=== PATIENT | female | born 1995 | race Two or more races ===

== ENCOUNTER 2022-03-29 08:54 | Emergency (ER) | payer BC, SELFPAY ==
[2022-03-29 09:02] VITALS: BP 107/64; PULSE 78; RESP 16; TEMP 36.1; O2SAT 100; BMI 22.7
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
[2022-03-29] MEDS: Ondansetron 4 MG/2 ML Vial IV (09:24)
[2022-03-29] MEDS: fentaNYL 100 MCG/2 ML Ampul 25 MCG IV ×2 (09:26→10:12)
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
[2022-03-29 09:34] LABS: Absolute Lymphocyte Count 1.88 X10^3/uL (0.83-4.51); Absolute Neutrophil Count 2.8 X10^3/uL (2.0-7.7); Basophil# 0.03 X10^3/uL; Basophil% 0.6 % (0-1); Eosinophils% 1.9 % (0-5); Hematocrit 38.7 % (37-47); Hemoglobin 12.6 g/dL (12.0-15.0); Lymphocyte # 1.88 X10^3/ul (0.83-4.51); Lymphocyte % 35.9 % (19-41); Mean Corp Hgb Conc 32.6 g/dL (32-36); Mean Corpuscular Hgb 30.4 pg (27.0-32.0); Mean Corpuscular Volume 93.3 fL (81-99); Mean Platelet Vol. 10.1 fl (6.2-12.0); Monocyte# 0.34 X10^3/uL; Monocyte% 6.5 % (0-10); NRBC Flagged by Analyzer 0 % (0-5); Neutrophil # 2.84 X10^3/uL (2.7-7.7); Neutrophil % 54.3 % (47-70); Platelet Count 255 K/mm3 (150-450); RBC Distribution Width CV 11.6 % (11.6-14.6); RBC Distribution Width SD 39.8 fl (35.1-43.9); Red Blood Count 4.15 M/mm3 (4.2-5.4); White Blood Count 5.2 K/mm3 (4.4-11.0)
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
[2022-03-29 09:50] LABS: Anion Gap 6 (5-15); BUN 11 mg/dL (7-18); BUN/Creat Ratio 18.1 RATIO (10-20); Calcium,Total 9.4 mg/dL (8.5-10.1); Chloride 108 mmol/L (98-107); Creatinine, Serum 0.61 mg/dL (0.55-1.02); EST Glomerular Filtration Rate 124 mL/min (>60); Est Glom Filt Rate - Afr Amer 150 mL/min (>60); Estimated Creatinine Clearance 113.58 ml/min; Glucose 97 mg/dL (74-106); Sodium Level 139 mmol/L (136-145)
[2022-03-29 10:15] VITALS: BP 102/70; PULSE 80; RESP 16; O2SAT 97
[2022-03-29 11:15] VITALS: BP 104/70; PULSE 75; RESP 16; O2SAT 96
[2022-03-29] MEDS: Morphine 4 MG/ML Syringe IV ×2 (11:50→12:36)
[2022-03-29 12:17] VITALS: BP 104/69; PULSE 76; RESP 17; O2SAT 96
[2022-03-29 12:17] LABS: Internal QC Validated? YES +Cl - CLEAR BKGD; Pregnancy, Serum, hCG Quali. NEGATIVE Negative
== END 2022-03-29 12:57 | disposition short-term general hospital (02) ==
LOC: ED 10:32
PROVIDERS: Emergency Provider Student in an Organized Health Care Education/Training Program; Visit Provider Student in an Organized Health Care Education/Training Program
DX: S06.9XAA Unspecified intracranial injury with loss of consciousness status unknown, initial encounter (principal); M54.9 Dorsalgia, unspecified; V43.52XA Car driver injured in collision with other type car in traffic accident, initial encounter
CPT/HCPCS: 70450; 71260; 72125; 74177; 80048; 82077; 84703; 85025; 93005; 96374; 96375; 96376; 99285; J7040; Q9967; A4216; J2405